=== PATIENT | male | born 2000 | race Hispanic/Latino ===

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

== ENCOUNTER → 2021-01-29 15:43 | Outpatient (CLI) | payer OTHER, MEDICAID, SELFPAY ==
[2021-01-29 16:57] LABS: COVID19 -Nasal RAPID Negative (Negative)
== END ==
PROVIDERS: Visit Provider Nurse Practitioner
DX: R51.9 Headache, unspecified (principal); R11.0 Nausea; Z20.822 Contact with and (suspected) exposure to COVID-19
CPT/HCPCS: 87635

== ENCOUNTER → 2021-12-26 18:31 | Outpatient (CLI) | payer OTHER, MEDICAID, SELFPAY ==
[2021-12-26 19:06] LABS: COVID19 -Nasal RAPID POSITIVE (Negative)
== END ==
PROVIDERS: Visit Provider Physician Assistant
DX: U07.1 COVID-19 (principal)
CPT/HCPCS: 87635

== ENCOUNTER 2022-01-24 16:17 | Emergency (ER) | payer OTHER, MEDICAID, SELFPAY ==
[2022-01-24 16:32] VITALS: BP 171/86; PULSE 65; RESP 22; TEMP 36.9; O2SAT 99
--- NOTE | 2022-01-24 16:34 | DI.RAD.S_ITS ---
PROCEDURE: XR CHEST 2V INDICATIONS: cough/congestion TECHNIQUE: 2 views of the chest were acquired. COMPARISON: None. FINDINGS: Surgical changes and devices: None. Lungs and pleura: Lungs are clear. No pleural effusions or pneumothorax. Mediastinum: Mediastinal contours are normal. Heart size is normal. Bones and chest wall: No suspicious bony abnormalities. Soft tissues appear unremarkable. IMPRESSION: No acute cardiopulmonary findings. Dictated by: Joseph Hansen M.D. on 01/24/2022 at 16:40 Approved by: Joseph Hansen M.D. on 01/24/2022 at 16:41
--- NOTE | 2022-01-24 18:58 | ED.URI ---
HPI - URI/Sore Throat General Chief Complaint: Upper Respiratory Symptoms Stated Complaint: CONGESTION, COUGH, HEADACHE Time Seen by Provider: 01/24/22 18:42 Source: patient Mode of arrival: Ambulatory History of Present Illness HPI Narrative: 21-year-old male nonsmoker with noncontributory medical history presents with his significant other and a chief complaint of various mild upper respiratory symptoms including runny nose, nasal congestion, mild sore throat and dry hacking cough. He denies any chest pain or significant shortness of breath. He denies any nausea or vomiting but has had some diarrhea. He is here with his significant other who has similar symptoms as stated. He had COVID about 1 month ago with relatively similar symptoms but took a home test that was negative Related Data Home Medications Medication Instructions Recorded Confirmed No Known Home Medications 01/29/21 12/26/21 Allergies Allergy/AdvReac Type Severity Reaction Status Date / Time No Known Drug Allergies Allergy Verified 12/26/21 18:24 Review of Systems Review of Systems Narrative: GENERAL: See HPI HEENT: See HPI RESPIRATORY: See HPI CARDIOVASCULAR: Denies chest pain, palpitations, orthopnea, edema, GASTROINTESTINAL: See HPI : Denies dysuria, frequency, incontinence, hematuria, urinary retention. MUSCULOSKELETAL: denies weakness, joint pain, or bony pain SKIN: Denies rash, skin lesions, or other NEUROLOGIC: Denies weakness, headache, numbness, change in speech, confusion, seizures, incoordination. PSYCHIATRIC: No concerning psychosocial issues. 12 point review of systems is negative except for those stated above Patient History Social History Smoking Status: Never smoker Smoking Status: Never smoker Exam Narrative Exam Narrative: GENERAL: [21] year old patient appears stated age. Well-developed patient, in mild distress. HEAD: Atraumatic. Normocephalic. EYES: Pupils equal round and reactive. Extraocular motions intact. No scleral icterus. No injection or drainage. ENT: Clear nasal drainage bilaterally with post nasal drip, minimal postpharyngeal erythema without tonsillar swelling or exudate. No lymphadenopathy, airway patent NECK: Trachea midline. Non tender CARDIOVASCULAR: Regular rate and rhythm without murmurs, gallops, or rubs. RESPIRATORY: Clear to auscultation. Breath sounds equal bilaterally. No wheezes, rales, or rhonchi. GASTROINTESTINAL: Abdomen soft, non-tender, nondistended. EXTREMITIES: No edema or joint tenderness. BACK: Nontender without deformity or crepitance. No flank tenderness. NEURO: AOx3. SKIN: No rash or erythema of visible areas Initial Vital Signs Initial Vital Signs: Vital Signs Temperature 98.4 F 01/24/22 16:32 Pulse Rate 65 01/24/22 16:32 Respiratory Rate 22 01/24/22 16:32 Blood Pressure 171/86 H 01/24/22 16:32 Pulse Oximetry 99 01/24/22 16:32 Oxygen Delivery Method 01/24/22 16:32 Course Orders Ordered: ED Orders 01/24/22 19:12 COVID19 -Nasal RAPID/Pre-Proc Stat Vital Signs Vital signs: Vital Signs - 8 hr 01/24/22 19:49 Pulse Rate 84 Respiratory Rate 18 Pulse Oximetry 98 Oxygen Delivery Method Room Air MDM - URI/Sore Throat Lab Data Labs: Lab Results 01/24/22 Range/Units 19:12 SARS-CoV-2 (PCR) Negative (Negative) Imaging Data Chest x-ray: Radiologist's Impression: Tanja Molina 21 F 2000 Allergy/Adv: No Known Drug Allergies [address] [id number] ReportSigned Patient: Tanja Molina CMR#: [id number]: 2000Acct:[id number]/Sex: 21 / FDate of Service: 01/24/22Loc: EDAccession Number: [id number] Procedure: XR chest 2V Ordering Provider: Pilar Aguirre D.O. PROCEDURE: XR CHEST 2V INDICATIONS: cough, recent covid TECHNIQUE: 2 views of the chest were acquired. COMPARISON: [facility], CHEST 2 VIEW, 07/20/2016, 16:50. FINDINGS: Surgical changes and devices: None. Lungs and pleura: Lungs are clear. No pleural effusions or pneumothorax. Mediastinum: Mediastinal contours are normal. Heart size is normal. Bones and chest wall: No suspicious bony abnormalities. Soft tissues appear unremarkable. IMPRESSION: No acute cardiopulmonary findings. Dictated by: Joseph Hansen M.D. on 01/24/2022 at 16:07 Approved by: Joseph Hansen M.D. on 01/24/2022 at 16:07 Discharge Plan Departure Patient Disposition: Home Clinical Impression: Upper respiratory infection Instructions: DI for Viral Upper Respiratory Infection -- Adult Activity Restrictions/Additional Instructions: *You have been diagnosed with [viral upper respiratory infection] *What to do: *Please continue to take your regular medications as directed. [ ] New medication prescriptions sent to your pharmacy: [ ] [ ] New medication written as a paper prescription [x ] No new medications given *Please follow up with your primary care provider in 2-3 days, call for an appointment. Let them know you were seen in the Emergency Department and that we ask that you be seen in follow up. We will electronically transmit a record of today's note if your PCP is in our system *If you do not have a primary care provider please contact the [facility] Resource line at [phone]. They will ask some questions about your medical history and help get you set up with a doctor in the community. *Return to Emergency Department if you should have any new, worsening or concerning symptoms, such as [fever greater than 101 F, shaking chills, worsening pain, persistent vomiting or other bothersome symptoms] Prescriptions: No Action No Known Home Medications Referrals: Miscellaneous,Doctor, [Primary Care Provider] - Stand Alone Forms: Work Release Note Visit Report Forms: Patient Portal/API
[2022-01-24 19:39] LABS: COVID19 -Nasal RAPID Negative (Negative)
[2022-01-24 19:49] VITALS: PULSE 84; RESP 18; O2SAT 98
== END 2022-01-24 19:50 | disposition home or self-care (01) ==
PROVIDERS: Emergency Provider Emergency Medicine
DX: J06.9 Acute upper respiratory infection, unspecified (principal); Z20.822 Contact with and (suspected) exposure to COVID-19
CPT/HCPCS: 71046; 87635; 99281; 99283; C9803

== ENCOUNTER → 2022-04-22 19:29 | Outpatient (CLI) | payer OTHER, MEDICAID, SELFPAY ==
[2022-04-22 20:27] LABS: Influenza A - CEPHEID Flu A POSITIVE (NEGATIVE); Influenza B - CEPHEID Flu B NEGATIVE (NEGATIVE); Respiratory Syncytial Virus Negative (Negative)
[2022-04-22 20:30] LABS: COVID-19 CEPHEID 4-PLEX PCR Negative (Negative)
== END ==
PROVIDERS: Visit Provider Registered Nurse
DX: R50.9 Fever, unspecified (principal)
CPT/HCPCS: 0241U

== ENCOUNTER 2022-05-27 14:32 | Emergency (ER) | payer OTHER, MEDICAID, SELFPAY ==
--- NOTE | 2022-05-27 15:08 | DI.RAD.S_ITS ---
PROCEDURE: XR SHOULDER LT MIN 2V INDICATIONS: pain for 7days TECHNIQUE: 3 views of the shoulder were acquired. COMPARISON: None. FINDINGS: Bones: No fractures or dislocations. No suspicious bony lesions. Visualized ribs appear intact. Soft tissues: No suspicious soft tissue calcifications. IMPRESSION: No visualized acute fracture or dislocation. However, if clinical concern and/or pain persist, short interval imaging followup in 7-10 days is recommended, as occult injury cannot be definitively excluded. Dictated by: Tiffani Cevallos M.D. on 05/27/2022 at 16:11 Approved by: Tiffani Cevallos M.D. on 05/27/2022 at 16:11
[2022-05-27 15:09] VITALS: BP 142/83; PULSE 72; RESP 18; TEMP 37.1; O2SAT 97; BMI 37.1
--- NOTE | 2022-05-27 17:19 | ED_ITS ---
HPI - Extremity Injury (Upper) <CHRIS Rocha - Last Filed: 05/27/22 21:39> General Chief Complaint: Extremity Injury, Upper Stated Complaint: L shoulder pain/discomfort x7 days Time Seen by Provider: 05/27/22 17:10 Source: patient Mode of arrival: Ambulatory History of Present Illness HPI narrative: This is a 21-year-old male presents to the emergency department with 7 days of left shoulder pain from lifting boxes at work during a long day. He denies any weakness, sensation changes, numbness or tingling, denies any anterior shoulder pain, complains of left trapezius soreness and tenderness. Denies any weakness, numbness or tingling, or range of motion deficit. Related Data Home Medications Medication Instructions Recorded Confirmed No Known Home Medications 01/29/21 04/22/22 Allergies Allergy/AdvReac Type Severity Reaction Status Date / Time No Known Drug Allergies Allergy Verified 05/27/22 15:11 Review of Systems <CHRIS Rocha - Last Filed: 05/27/22 21:39> Review of Systems ROS Unobtainable: All systems reviewed & are unremarkable except as noted in HPI and below Patient History <CHRIS Rocha - Last Filed: 05/27/22 21:39> Social History Smoking Status: Never smoker Smoking Status: Never smoker Substance Use Type: marijuana Exam <CHRIS Rocha - Last Filed: 05/27/22 21:39> Narrative Exam Narrative: Reviewed vitals signs and nursing notes. General: cooperative, comfortable, in no acute distress, well groomed, afebrile HEENT: symmetrical facial expressions, moist mucous membranes, neck supple, no tenderness over C-spine, tenderness over left trapezius, nontender over left scapula MSK: moves all extremities, neurovascularly intact, no weakness, normal tone, bilateral upper extremities equal bilaterally without tenderness over the acromion process, nontender over anterior and posterior shoulder with negative rotator cuff test. Patient's pain is exacerbated by Skin: brisk capillary refill, without pallor or erythema Neuro: normal speech and cognition, A&O x3, ambulatory, clear speech Psych: mental status is grossly normal, congruent mood, normal affect, pleasant and cooperative Initial Vital Signs Initial Vital Signs: Vital Signs Temperature 98.8 F 05/27/22 15:09 Pulse Rate 72 05/27/22 15:09 Respiratory Rate 18 05/27/22 15:09 Blood Pressure 142/83 H 05/27/22 15:09 Pulse Oximetry 97 05/27/22 15:09 Oxygen Delivery Method 05/27/22 15:09 <Maykel Kaufman DO - Last Filed: 05/29/22 11:43> Initial Vital Signs Initial Vital Signs: Vital Signs Temperature 98.8 F 05/27/22 15:09 Pulse Rate 72 05/27/22 15:09 Respiratory Rate 18 05/27/22 15:09 Blood Pressure 142/83 H 05/27/22 15:09 Pulse Oximetry 97 05/27/22 15:09 Oxygen Delivery Method 05/27/22 15:09 Procedures <CHRIS Rocha - Last Filed: 05/27/22 21:39> Orthopedic Splinting/Casting Injury #1: Side: left Upper Extremity Injury Location: shoulder Upper Extremity Immobilizer: sling/shoulder immobilizer Course <CHRIS Rocha - Last Filed: 05/27/22 21:39> Orders Ordered: Discontinued Medications Acetaminophen (Acetaminophen 325 Mg Tablet) 975 mg PO NOW ONE Stop: 05/27/22 17:28 Last Admin: 05/27/22 17:48 Dose: 975 mg Documented By: AT Ketorolac Tromethamine (Ketorolac 30 Mg/Ml Vial) 15 mg IM NOW ONE Stop: 05/27/22 17:15 Last Admin: 05/27/22 17:48 Dose: 15 mg Documented By: AT Vital Signs Vital signs: Vital Signs - 8 hr 05/27/22 15:09 05/27/22 18:10 Temperature 98.8 F Pulse Rate 72 70 Respiratory Rate 18 Blood Pressure 142/83 H 121/71 Pulse Oximetry 97 97 Oxygen Delivery Method Room Air Room Air <Maykel Kaufman DO - Last Filed: 05/29/22 11:43> Orders Ordered: Discontinued Medications Acetaminophen (Acetaminophen 325 Mg Tablet) 975 mg PO NOW ONE Stop: 05/27/22 17:28 Last Admin: 05/27/22 17:48 Dose: 975 mg Documented By: AT Ketorolac Tromethamine (Ketorolac 30 Mg/Ml Vial) 15 mg IM NOW ONE Stop: 05/27/22 17:15 Last Admin: 05/27/22 17:48 Dose: 15 mg Documented By: AT Vital Signs Vital signs: Vital Signs - 8 hr 05/27/22 15:09 05/27/22 18:10 Temperature 98.8 F Pulse Rate 72 70 Respiratory Rate 18 Blood Pressure 142/83 H 121/71 Pulse Oximetry 97 97 Oxygen Delivery Method Room Air Room Air [facility] - Extremity Injury (Upper) <ERICA RochaP - Last Filed: 05/27/22 21:39> Imaging Data Extremity x-ray #1: Radiologist's Impression: PROCEDURE:? XR SHOULDER LT MIN 2V ? INDICATIONS:? pain for 7days ? TECHNIQUE:? 3 views of the shoulder were acquired.? ? COMPARISON:? None. ? FINDINGS:? ? Bones:? No fractures or dislocations.? No suspicious bony lesions.? Visualized ribs appear intact.? ? Soft tissues:? No suspicious soft tissue calcifications.? ? IMPRESSION:? No visualized acute fracture or dislocation. However, if clinical concern and/or pain persist, short interval imaging followup in 7-10 days is recommended, as occult injury cannot be definitively excluded. ? ? Dictated by: Tiffani Cevallos M.D. on 05/27/2022 at 16:11 ? ? Approved by: Tiffani Cevallos M.D. on 05/27/2022 at 16:11 ? [facility] Narrative Medical decision making narrative: This is a 21-year-old male who is presenting to the ED via POV with left disease pain after moving boxes with approximally 1 week ago ever had at work, complains of soreness to the musculature without weakness, numbness or tingling, abnormal range of motion, point tenderness or sensation changes. Differential diagnoses include, but are not limited to: Rotator cuff injury, muscle strain, shoulder sprain, acromioclavicular injury, biceps tendon injury, cervical spine strain, thoracic spine, scapular injury, ruptured tendon or tendon injury I performed a preliminary independent interpretation of the following imaging st udies: Left shoulder x-ray does not show acute fracture or dislocation on my evaluation Course of Care: Assess patient, recently atraumatic, overuse injury versus muscle strain without tenderness with abduction, flexion, external rotation, bilateral equal pulses, tenderness to the left trapezius, left shoulder x-ray negative for visualized fracture or dislocation. Treated patient with Toradol and Tylenol. Patient is without any motor or sensory deficit, encouraged him to rest, use a sling, use Tylenol and ibuprofen every 6 hours as needed for pain with warm and cold compresses. Stay hydrated, follow-up with PCP for referral to physical therapy if not better in 1-2 weeks. Patient is appropriate and amenable to discharge home. Vital signs are stable on repeat examination is unremarkable. Patient has been informed of results. Patient has been given strict return to ER precautions for any new or worsening symptoms. Patient understands to follow up closely with outpatient providers as instructed. Patient understands plan and agrees to discharge home. All questions and concerns answered at this time. Patient's symptoms improved over duration of stay with above-stated therapies. MIPS: This encounter doesn't have any diagnosis associated with MIPS criteria. Social determinants of health that may impact treatment or disposition: Vital Signs: I, the ED provider, reviewed the patient?s vital signs, past medical records and encounters if available, and nursing notes. I have spoken with the patient/family and discussed today?s findings whom verbalize understanding. Counseling was provided regarding the diagnosis and prognosis, and specific details were provided for the plan of care. Questions are addressed and there is agreement with the plan and for follow-up. Patient is appropriate for outpatient management. Portions of this chart have been created with [employer] voice recognition software. Occasional wrong word or sound alike substitutions may have occurred due to the inherent limitations of this software. I, CHRIS Leyva, personally performed the services described in the documentation, and it accurately records my words and actions. I collaborated wi th the ED attending physician for JOLANTA level 2, 3, and some level 4s as needed Electronically signed by: CHRIS Leyva Discharge Plan Departure Patient Disposition: Home Clinical Impression: Muscle strain Trapezius muscle strain Qualifiers: Encounter type: initial encounter Laterality: left Qualified Code(s): S46.812A - Strain of other muscles, fascia and tendons at shoulder and upper arm level, l eft arm, initial encounter Instructions: DI for Muscle Strain, DI for Shoulder Sprain Activity Restrictions/Additional Instructions: *You have been diagnosed with a muscle strain musculature your left upper back and shoulder. This is most likely a trapezius muscle strain, symptoms should get better over the next 5 days if you reduce your activity level, take ibuprofen 800 mg every 8 hours with 975 mg of Tylenol concurrently. Take the medication with food, use the sling to help reduce overuse, use cool compresses and follow-up with your doctor on 06/04/2022 ask for a referral to physical therapy. I hope you feel better soon. Use ice and heat and alternate between the 2, gentle range of motion, try to avoid weight-bearing and excessive use of your left shoulder. *What to do: *Please continue to take your regular medications as directed. [ ] New medication prescriptions sent to your pharmacy: [ ] [ ] New medication written as a paper prescription [x ] No new medications given *Please follow up with your primary care provider in 2-3 days, call for an appointment. Let them know you were seen in the Emergency Department and that we asked that you be seen for follow-up. We will electronically transmit a record of today's note if your PCP is in our system *If you do not have a primary care provider please contact [phone] to establish care with one of the [facility] primary care providers. *Return to Emergency Department if you should have any new, worsening, or concerning symptoms, such as [fever greater than 101F, chills, worsening pain, persistent vomiting or other bothersome symptoms]. Prescriptions: No Action No Known Home Medications Referrals: [facility] - [facility] [Outside] - 5-7 days Miscellaneous,Doctor, [Primary Care Provider] - Stand Alone Forms: Patient Portal/API <Maykel Kaufman DO - Last Filed: 05/29/22 11:43> [facility]: I was immediately available in the department for consultation. This documentation has been reviewed and I agree with assessment and plan. Supervised by Maykel Kaufman DO
[2022-05-27] MEDS: KETOROLAC 30 MG/ML VIAL 15 MG IM (17:48)
[2022-05-27] MEDS: ACETAMINOPHEN 325 MG TABLET 975 MG PO (17:48)
[2022-05-27 18:10] VITALS: BP 121/71; PULSE 70; O2SAT 97
== END 2022-05-27 18:13 | disposition home or self-care (01) ==
PROVIDERS: Emergency Provider Nurse Practitioner Critical Care Medicine
DX: S46.812A Strain of other muscles, fascia and tendons at shoulder and upper arm level, left arm, initial encounter (principal); X50.9XXA Other and unspecified overexertion or strenuous movements or postures, initial encounter
CPT/HCPCS: 73030; 96372; 99283; J1885